=== PATIENT | male | born 1930 | race Caucasian/White ===

== ENCOUNTER → 2016-08-14 | Outpatient (CLI) | payer OTHER ==
[~2016-08-14] MED LIST: ASPIR 8181 MG PO; BUSPIRONE HCL10 MG PO; CENTRUM SILVER1 EAC2 PO; FLOMAX0.4 MG PO; VITAMIN D-32000 UNIT PO
== END ==
LOC: MRI 06:54
DX: R55 Syncope and collapse (principal); I25.10 Atherosclerotic heart disease of native coronary artery without angina pectoris; G45.9 Transient cerebral ischemic attack, unspecified; I63.9 Cerebral infarction, unspecified